=== PATIENT | female | born 1970 | race Caucasian/White ===

== ENCOUNTER 2018-05-06 00:55 | Emergency (ER) | payer BC ==
[~2018-05-06] VITALS: Ht 157.5 cm; Wt 79.5 kg
[2018-05-06 01:02] VITALS: BP 147/849; TEMP 98.6
[2018-05-06] MEDS ORDERED: FLEXERIL 1010 MG/TAB PO (04:26)
[2018-05-06] MEDS ORDERED: NORCO 325 MG-51 TAB PO (04:26)
[2018-05-06 05:14] VITALS: PULSE 65
== END 2018-05-06 05:20 | disposition home or self-care (01) ==
LOC: COL.ER 00:55
DX: M25.511 Pain in right shoulder (principal)
CPT/HCPCS: J1170

== ENCOUNTER 2019-08-07 10:51 | Inpatient (IN) | payer BC ==
[2019-08-07] VITALS (14 sets, daily range): BP systolic 106–141; BP diastolic 54–80; PULSE 64–87; TEMP 97.7–98.6
[~2019-08-07 10:51] MED LIST: FLEXERIL 1010 MG/TAB PO; NORCO 325 MG-51 TAB PO
--- NOTE | 2019-08-07 11:05 | NUR ---
1105- Pt arrives on unit, sent by Dr Law/Dr Reyes. Pt oriented to room. Pt into bathroom, voids, urine sample obtained, changes into gown, peripad on. IV started in right hand without difficulty, labs obtained. NS infusing. Assessment completed. Pt denies pain or discomfort. States she just does not feel well. Call light within reach.
[2019-08-07 11:45] LABS: BASO % 0.4 % (0.0-2.0); EOS # 0.2 (0.0-0.7); EOS % 2.2 % (0-4.0); GRAN # 4.9 (1.4-6.5); GRAN % 68.3 % (42.2-75.2); LYMPH # 1.7 (1.2-3.4); LYMPH % 23.2 % (20.0-51.0); MEAN CELL VOLUME 77 fl (80.0-100.0); MEAN CORPUSCULAR HGB CONC 29 g/dl (33.0-37.0); MEAN PLATELET VOLUME 9.1 fl (7.4-10.4); MONO # 0.4 (0.1-0.6); MONO % 5.3 % (1.7-9.3); PLATELET COUNT 306 K/mm3 (130-400); REDCELL DISTRIBUTION WIDTH-CV 16.5 % (11.5-14.5)
[2019-08-07 11:50] LABS: ALBUMIN 4.4 gm/dL (3.5-5.0); BILIRUBIN,TOTAL 0.4 mg/dL (0.0-1.0); CALCIUM 10.1 mg/dL (8.4-10.2); CREATININE, serum 0.74 (0.52-1.25); POTASSIUM 3.8 mmol/L (3.4-5.0); TOTAL PROTEIN 7.9 gm/dL (6.4-8.2)
[2019-08-07 11:55] LABS: HEMATOCRIT 17.8 % (37.0-47.0); HEMOGLOBIN 5.1 g/dl (12.5-16.0); MEAN CORPUSCULAR HEMOGLOBIN 22 pg (27.0-31.0)
--- NOTE | 2019-08-07 14:20 | NUR ---
1420- Pt arrives on unit via bed from OR, following D&C. Pt sleepy but oriented x4. Report received from RN and MACHINE SHOP HELPER. Blood infusion continues at 125ml/hr. Pt tolerating well. Pt denies pain at this time.
[2019-08-07] MEDS ORDERED: IBU600 MG PO (14:31)
[2019-08-07] MEDS ORDERED: PROVERA 2.5MG2.5 MG PO (14:32)
[2019-08-07] MEDS ORDERED: PERCOCET 325 MG1 TA2 PO (14:32)
[2019-08-07] MEDS ORDERED: LEVOXYL0.05 MG PO (14:33)
[2019-08-07 19:28] LABS: BASO % 0.5 % (0.0-2.0); EOS # 0.2 (0.0-0.7); EOS % 1.9 % (0-4.0); GRAN # 5.3 (1.4-6.5); GRAN % 66.1 % (42.2-75.2); LYMPH % 24.7 % (20.0-51.0); MEAN CELL VOLUME 81 fl (80.0-100.0); MEAN CORPUSCULAR HGB CONC 31 g/dl (33.0-37.0); MEAN PLATELET VOLUME 8.9 fl (7.4-10.4); MONO # 0.5 (0.1-0.6); MONO % 6.3 % (1.7-9.3); PLATELET COUNT 255 K/mm3 (130-400); RED BLOOD COUNT 2.84 M/mm3 (4.10-5.30); REDCELL DISTRIBUTION WIDTH-CV 15.9 % (11.5-14.5)
[2019-08-07 19:30] LABS: HEMATOCRIT 22.9 % (37.0-47.0); MEAN CORPUSCULAR HEMOGLOBIN 25 pg (27.0-31.0)
[2019-08-08 02:20] VITALS: BP 116/67; PULSE 72; TEMP 97.8
[2019-08-08 08:00] VITALS: BP 118/69; PULSE 68; TEMP 98.4
[2019-08-08 08:14] LABS: BASO % 0.4 % (0.0-2.0); EOS # 0.2 (0.0-0.7); EOS % 2.5 % (0-4.0); GRAN # 4.9 (1.4-6.5); GRAN % 68.8 % (42.2-75.2); LYMPH # 1.6 (1.2-3.4); LYMPH % 23.1 % (20.0-51.0); MEAN CELL VOLUME 80 fl (80.0-100.0); MEAN CORPUSCULAR HGB CONC 31 g/dl (33.0-37.0); MEAN PLATELET VOLUME 9.5 fl (7.4-10.4); MONO # 0.3 (0.1-0.6); MONO % 4.8 % (1.7-9.3); PLATELET COUNT 279 K/mm3 (130-400); RED BLOOD COUNT 2.99 M/mm3 (4.10-5.30); REDCELL DISTRIBUTION WIDTH-CV 15.9 % (11.5-14.5)
[2019-08-08 08:15] LABS: HEMATOCRIT 23.9 % (37.0-47.0); HEMOGLOBIN 7.3 g/dl (12.5-16.0); MEAN CORPUSCULAR HEMOGLOBIN 24 pg (27.0-31.0)
--- NOTE | 2019-08-08 10:08 | NUR ---
Initial visit; Patient thanked Patient Observation Assistant for looking in on her and offering encouragement and God's Blessings.
--- NOTE | 2019-08-08 10:15 | NUR ---
0950- Discharge paperwork given and explained. Pt declines Percocet prescription. Placed in shredder by this RN. 1015- Pt escorted out of hospital by this RN, ambulates independently, tolerated well.
== END 2019-08-08 10:15 | disposition home or self-care (01) | DRG 744 ==
LOC: SDCO 10:51 → OB 10:51 → EDSTATUS 12:00 → COL.RAD 12:00 → SDCO 14:16 → OB 14:19
PROVIDERS: ADMIT Obstetrics & Gynecology
PROC: 0UDB7ZZ Extraction of Endometrium, Via Natural or Artificial Opening (ICD-10-PCS; principal; 2019-08-07 13:30)
DX: N84.0 Polyp of corpus uteri (principal); D62 Acute posthemorrhagic anemia; E66.9 Obesity, unspecified; E03.9 Hypothyroidism, unspecified; Z90.49 Acquired absence of other specified parts of digestive tract
CPT/HCPCS: J2250; J2704; J3010; J7030; J7120; P9016